=== PATIENT | female | born 1970 | race Caucasian/White ===

== ENCOUNTER 2016-04-22 19:07 | Emergency (ER) | payer BC ==
[~2016-04-22] VITALS: Ht 157.5 cm; Wt 109.0 kg
[~2016-04-22 19:07] MED LIST: LSNP10T PO
--- OUTSIDE RECORDS SUMMARY | 2016-04-22 19:10 | XMS REPORT | Summary of Care ---
Author Author Deborah Eastman Organization Unknown Address [address], [place] [id number] Phone Unavailable Care Team Providers Care Tipple Mechanic Name Role Phone Rafael Rutherford PP Unavailable Unavailable Unavailable Functional Status Functional Status Health Issues Name Dates Details Functional status health issues are not documented Status: Cognitive Status Health Issues Name Dates Details Cognitive status health issues are not documented Status: Problems Name Dates Details Acute pharyngitis (462, J02.9) Status: Active Hypertension, uncontrolled (401.9, I10) Status: Active Medications Name Dates Details Lisinopril 10 MG Oral Tablet TAKE 1 TABLET DAILY. Refills: 0 Started Active Allergies and Adverse Reactions Name Dates Details No Known Drug Allergies Status: Active Procedures Procedure Dates Details Procedures not documented Immunization Name Dates Details Immunizations not documented Social History Name Dates Details Smoking StatusNever smoker Vital Signs Date Test Result Details 10:44 BP Systolic 177 mm[Hg] Status: BP Diastolic 108 mm[Hg] Status: Temperature 98.2 f Status: Heart Rate 85 /min Status: Height 62 in Status: Weight 245.5 lb Status: O2 SAT 97 % Status: Body Mass Index Calculated 44.9 kg/m2 Status: Body Surface Area Calculated 2.09 m2 Status: Results Date Description Value Details 11:22 STREPTOCOCCUS SCREEN WITH CULTURE 5040 Comments: * Culture in progress*Testing performed by [facility], [address] [place] [id number] Testing performed by [facility], [address] [place] [id number] *STREPTOCOCCUS SCREEN NEGATIVE for Streptococcus pyogenes (Better) Range : NEGATIVE for Streptococcus pyogenes 13:33 THROAT CULTURE [id number] Comments: [facility] performed at: [place], [facility], [id number] [place], [address], [employer] Estimator: Alvino Puri D.O., MPHQuest Collection Date/Time: [id number] Results Received Date/Time: [id number] Reported Date/Time: [id number] FASTING:NO CULTURE, THROAT SEE NOTE (Better) Comments: CULTURE, THROAT MICRO NUMBER: [id number] TEST STATUS: FINAL SPECIMEN SOURCE: THROAT SPECIMEN QUALITY: ADEQUATE RESULT: Moderate growth of Beta-hemolytic Streptococcus, not group A,C or G Beta-hemolytic Streptococci are predictably susceptible to penicillin and other beta-lactams. Susceptibility testing not routinely performed. COMMENT: Normal oropharyngeal jas also present.[KS]----- Plan of Care Planned Observations Name Dates Details Planned Goals not documented Goal Instructions Instructions not documented Encounters Appointment; Deborah Eastman Encounter Diagnosis: Problem not documented On 10:40
[2016-04-22] MEDS ORDERED: SODIUM CHLORIDE FLUSH 10 ML SYR IV PRN (19:25)
[2016-04-22] MEDS ORDERED: SODIUM CHLORIDE FLUSH 3 ML SYR IV PRN (19:25)
[2016-04-22] MEDS ORDERED: KETOROLAC 30 MG/ML (TORADOL) 1 ML VIAL IV ONE (19:25)
[2016-04-22] MEDS ORDERED: ONDANSETRON 2 MG/ML (Z0FRAN) 2 ML VIAL IV ONE (19:25)
[2016-04-22] MEDS ORDERED: CHLO25TA2 PO (19:43)
[2016-04-22 19:51] LABS: BASOPHILS % (AUTO) 0 % (0-2); EOSINOPHILS # (AUTO) 0.1 10^3uL; EOSINOPHILS % (AUTO) 1 % (0-4); LYMPHOCYTES # (AUTO) 1.9 X10^3; MEAN CORPUSCULAR HEMOGLOBIN 28.7 PG (26.0-34.0); MEAN CORPUSCULAR HGB CONC 33.6 g/dL (31.0-37.0); MEAN CORPUSCULAR VOLUME 85 FL (80-100); MEAN PLATELET VOLUME 11.6 FL (6.0-9.5); MONOCYTES # (AUTO) 0.7 X10^3; MONOCYTES % (AUTO) 6 % (3-11); NEUTROPHILS # (AUTO) 10.7 X10^3; NEUTROPHILS % (AUTO) 80 % (51-67); PLATELET COUNT 240 10^3uL (150-450)
[2016-04-22 20:00] LABS: ALBUMIN 4.2 g/dL (3.4-5.0); ANION GAP 15.9 MEQ/L (3-15); CALCULATED IONIZED CALCIUM 3.9 mg/dL (3.8-4.6); TOTAL PROTEIN 6.9 g/dL (6.4-8.5)
[2016-04-22] MEDS ORDERED: ED- HYDROcodone/ACETAMINOPHEN 5MG/325MG (NORCO) 6 TABLETS/BTL PO ONE (20:55)
[2016-04-22] MEDS ORDERED: HYDR-3702 PO (20:57)
[2016-04-22 21:19] VITALS: BP 167/83
--- NOTE | 2016-04-23 08:09 | Diagnostic Imaging Report ---
PROCEDURE: CT abdomen and pelvis without contrast. TECHNIQUE: Multiple contiguous axial images were obtained through the abdomen and pelvis without the use of intravenous contrast. INDICATION: Right flank pain. COMPARISON: None available FINDINGS: The lung bases are clear. No pericardial or pleural effusion. There is a 7-mm obstructing calculus in the distal right ureter resulting in moderate hydronephrosis and hydroureter on the right. There is asymmetric stranding around the right kidney, compatible with obstruction. No left-sided renal or ureteral calculi. There is a 3.5 x 3.0-cm cyst in the midportion of the left kidney. The urinary bladder is distended without focal wall thickening and there are no intraluminal calculi. Hysterectomy. Ovaries are normal in appearance for patient's age. Evaluation of the abdominal viscera is mildly limited without IV contrast. Allowing for this, liver, spleen, pancreas, and adrenals are normal. The stomach is decompressed. No bowel obstruction. The gallbladder is normal. No pericolonic inflammatory changes. The appendix is normal. No free intraperitoneal air or fluid. Normal-caliber abdominal aorta. No concerning osseous lesions. Small fat-containing umbilical hernia. IMPRESSION: 1. There is a 7-mm obstructing calculus in the distal right ureter resulting in moderate hydroureteronephrosis. 2. Findings in agreement with the preliminary report. Dictated by: Dictated on workstation # [id number]
== END 2016-04-22 21:20 | disposition home or self-care (01) ==
LOC: ED 19:08
DX: N13.2 Hydronephrosis with renal and ureteral calculous obstruction (principal); E87.6 Hypokalemia
CPT/HCPCS: 36415; 74176; 80053; 82150; 83690; 85025; 96361; 96374; 96375; 99284; J1885; J2405; J7030; 99283